=== PATIENT | female | born 1995 | race Caucasian/White ===

== ENCOUNTER 2016-11-20 14:29 | Emergency (ER) | payer OTHER ==
[~2016-11-20] VITALS: Ht 172.7 cm; Wt 65.9 kg
[2016-11-20 14:32] VITALS: BP 134/59; PULSE 87; TEMP 98.5
== END 2016-11-20 17:09 | disposition home or self-care (01) ==
LOC: COL.ER 14:29
DX: S52.132A Displaced fracture of neck of left radius, initial encounter for closed fracture (principal); S50.01XA Contusion of right elbow, initial encounter; W18.30XA Fall on same level, unspecified, initial encounter